=== PATIENT | male | born 1955 | race Caucasian/White ===

== ENCOUNTER 2022-12-19 14:02 | Outpatient (CLI) | payer MEDICARE, OTHER, SELFPAY ==
--- NOTE | ~2022-12-19 | XR_ITS ---
EXAMINATION: XR abdomen/kub 1V DATE: 12/19/2022 14:19 INDICATION: Right kidney stone. TECHNIQUE: A supine view of the abdomen on 2 radiographs was obtained. COMPARISON: CT abdomen and pelvis 12/19/2022 FINDINGS: There are no dilated loops of bowel. There is an 11 mm stone in right kidney. There are lenin roximately 3 stones in left kidney measuring up to 6 mm. There is 2 stones in distal left ureter with the larger measuring 8 x 4 mm. IMPRESSION: 1. Bilateral kidney stones. 2. Distal left ureteral stones. Reviewed, dictated and finalized at location E.
--- NOTE | ~2022-12-19 | CT_ITS ---
Non-contrast CT scan of the Abdomen and Pelvis Clinical indication: Left renal stone Technique: 2.5 mm axial scans were obtained through the abdomen and pelvis without intravenous or or al contrast. Dose reduction technique was used on this scan by utilizing automated exposure control a nd iterative reconstruction technique. The dose-length product (DLP) was 990.40 mGy-cm. Findings: Images through the lung bases reveal 3 and 5 mm right basilar pulmonary nodules. There are bilateral nonobstructing renal stones, measuring 1.1 cm in size on the right, and 0.7 cm in size on the left. There are also several stones at the distal left ureter, measuring up to 5 mm in m aximum diameter. No isabel hydronephrosis evident. No right ureteral stones. The liver, spleen, pancreas, gallbladder, and adrenals appear normal. There are atherosclerotic calci fications of the aorta. There is no evidence of bowel obstruction. Colonic diverticulosis noted. Images through the pelvis were performed. There is no evidence of ascites or lymphadenopathy. Urinary bladder unremarkable. Prostate gland and seminal vesicles are unremarkable. Impression: Bilateral nonobstructing renal calculi, as detailed above. Several stones at the distal left ureter, as detailed above, without isabel hydronephrosis or ureteral dilatation. Subcentimeter right basilar pulmonary nodules, as detailed above. According to Fleischner Society cri teria, for a low-risk patient, no further follow-up required. For a high-risk patient, consider 12 mo nth follow-up CT. Reviewed, dictated and finalized at [facility]. Impression: Bilateral nonobstructing renal calculi, as detailed above. Several stones at the distal left ureter, as detailed above, without isabel hydr onephrosis or ureteral dilatation. Subcentimeter right basilar pulmonary nodules, as detailed above. According to Fleischner Society criteria, for a low-risk patient, no further follow-up requi red. For a high-risk patient, consider 12 month follow-up CT.
== END 2022-12-19 14:03 | disposition home or self-care (01) ==
LOC: ANHIMG 14:05
PROVIDERS: PCP Internal Medicine; Visit Provider Urology
DX: N20.0 Calculus of kidney (principal); N20.1 Calculus of ureter
CPT/HCPCS: 74018; 74176